=== PATIENT | female | born 1950 | race Caucasian/White ===

== ENCOUNTER 2025-01-09 11:16 | Day surgery (SDC) | payer MEDICARE ==
[~2025-01-09] VITALS: Ht 162.6 cm; Wt 68.0 kg
[~2025-01-09 11:16] MED LIST: AMLO1TAB24 PO; CYCL1DRO10; ECOT81TA5 PO; GABA-1171 PO; IRBE150T27 PO; LEVO75TA4 PO; MIDAZOLAM INJ 2 MG/2 ML VIAL As Ordered ONE; MULTTAB61 PO; OMEP40CA5 PO; PHENYLEPHRINE 10% OPHTH SOL 5ML OS PRN; SIMV40TA20 PO; TIRZ5PEN3; ZINC50CA4 PO
[2025-01-09] MEDS: LIDOCAINE 3.5% 1 ML OPHTH TOPICAL GEL OU ONE (11:57)
[2025-01-09] MEDS: OFLOXACIN 0.3 % (OCUFLOX) OPTH SOL 5ML OS ONE (11:57)
[2025-01-09] MEDS: CYCLOPENTOLATE 1% OPHTH SOLN 2 ML BTL OS SCH (11:58)
[2025-01-09] MEDS: PHENYLEPHRINE 2.5% OPHTH SOL 2ML OS SCH (11:58)
[2025-01-09] MEDS: TROPICAMIDE 1% OPHTH SOLN 15ML OS SCH (11:58)
[2025-01-09] MEDS: LIDOCAINE 1% SDV 5 ML VIAL As Ordered ONE (12:46)
[2025-01-09] MEDS: BSS IRRIG/VANCO(10MG)/TOBRA(5MG)/EPINEPH(1:1000-0.5CC)500ML BAG-ORONLY As Ordered ONE (12:46)
[2025-01-09] MEDS: CEFUROXIME 1 MG/0.1 ML INTRACAMERAL INJ As Ordered ONE (12:47)
[2025-01-09 12:56] VITALS: BP 162/67; TEMP 97.7; O2SAT 99
== END 2025-01-09 12:56 | disposition home or self-care (01) ==
LOC: M SDC 11:16
PROVIDERS: ATTEND Ophthalmology
DX: H25.12 Age-related nuclear cataract, left eye (principal); I12.9 Hypertensive chronic kidney disease with stage 1 through stage 4 chronic kidney disease, or unspecified chronic kidney disease; E03.9 Hypothyroidism, unspecified; E78.00 Pure hypercholesterolemia, unspecified; K21.9 Gastro-esophageal reflux disease without esophagitis; Z79.899 Other long term (current) drug therapy; Z79.890 Hormone replacement therapy; Z79.82 Long term (current) use of aspirin; N18.9 Chronic kidney disease, unspecified
CPT/HCPCS: 66984; J0697; J2250; J3010; V2632

== ENCOUNTER 2025-02-06 09:54 | Day surgery (SDC) | payer MEDICARE ==
[~2025-02-06] VITALS: Ht 165.1 cm; Wt 67.8 kg
[2025-02-06] MEDS: LIDOCAINE 1% SDV 5 ML VIAL As Ordered ONE (07:46)
[~2025-02-06 09:54] MED LIST changes: +CYCLOPENTOLATE 1% OPHTH SOLN 2 ML BTL OD SCH; +LIDOCAINE 3.5% 1 ML OPHTH TOPICAL GEL OU ONE; +OFLOXACIN 0.3 % (OCUFLOX) OPTH SOL 5ML OD ONE; +PHENYLEPHRINE 10% OPHTH SOL 5ML OD PRN; -PHENYLEPHRINE 10% OPHTH SOL 5ML OS PRN; +PHENYLEPHRINE 2.5% OPHTH SOL 2ML OD SCH; +TROPICAMIDE 1% OPHTH SOLN 15ML OD SCH
[2025-02-06] MEDS: CEFUROXIME 1 MG/0.1 ML INTRACAMERAL INJ As Ordered ONE (12:52)
[2025-02-06] MEDS: BSS IRRIG/VANCO(10MG)/TOBRA(5MG)/EPINEPH(1:1000-0.5CC)500ML BAG-ORONLY As Ordered ONE (12:52)
[2025-02-06 13:10] VITALS: BP 163/76; TEMP 97.3; O2SAT 98
== END 2025-02-06 13:28 | disposition home or self-care (01) ==
LOC: M SDC 09:54
PROVIDERS: ATTEND Ophthalmology
DX: H25.11 Age-related nuclear cataract, right eye (principal); I10 Essential (primary) hypertension; E03.9 Hypothyroidism, unspecified; N28.9 Disorder of kidney and ureter, unspecified; E78.00 Pure hypercholesterolemia, unspecified; K21.9 Gastro-esophageal reflux disease without esophagitis; Z79.82 Long term (current) use of aspirin; Z79.899 Other long term (current) drug therapy; Z79.890 Hormone replacement therapy
CPT/HCPCS: 66984; J0697; J2250; J3010; V2632